=== PATIENT | male | born 1955 | race Caucasian/White ===

== ENCOUNTER 2018-06-06 13:53 | Day surgery (SDC) | payer OTHER, SELFPAY ==
--- NOTE | 2018-06-06 | PATH_ITS ---
[facility] Accession Number: [id number] . 01 Material submitted: . POLYP AT CECUM . 02 Diagnosis: Cecum, Polyp, Biopsy: Colonic mucosa with a small benign lymphoid aggregate and no other diagnostic abnormality. Additional levels were examined. Negative for dysplasia and malignancy. MRV/06/10/2018 . 02 Electronically signed: . Denisse Patterson MD, Pathologist NPI- [id number] . 01 Gross description: . Received one formalin-filled container labeled with the patient's name and designated polyp at cecum. The specimen consists of a 0.4 cm portion of tissue, entirely submitted in one cassette. ([id number]) /FRR . 02 Pathologist provided ICD-10: K63.5 . 02 CPT . 574209 Performed at: 01 [facility] [address] [id number] MD Agusto Delgado MD Phone: [phone] Performed at: 02 [facility] [address] [place] [id number] MD Denisse Patterson MD Phone: [phone]
[2018-06-06 14:18] VITALS: BMI 23.6
[2018-06-06 14:32] VITALS: BP 119/69; PULSE 59; RESP 15; TEMP 36.2; O2SAT 99
[2018-06-06] MEDS: SODIUM CHLORIDE 0.9% 1,000 ML 200 ML IV (14:33)
--- NOTE | 2018-06-06 14:38 | PM.PREOP ---
Pre-operative Note Interval Note History & Physical reviewed/Exam performed by Physician: Yes Changes to H&P: No
[2018-06-06] MEDS: fentaNYL 250 MCG/5 ML INJ IV (15:01)
[2018-06-06] MEDS: MIDAZOLAM 5 MG/5 ML VIAL IV (15:02)
--- NOTE | 2018-06-06 15:08 | PM.OP.1 ---
Operative Date/Time/Diagnoses Date of procedure: 06/06/18 Time of procedure: 15:08 Pre-op diagnosis: Screening Post-op diagnosis: same Procedure & Clinicians Procedure: Colonoscopy to the cecum with 1 biopsy Same procedure as scheduled: Yes Indications: Last colonoscopy more than 10 years ago Surgeon: Deidra Lares Anesthesia Type: Sedation (Versed 8 mg; fentanyl 200 mcg) Operative Notes Findings: 1. Excellent prep 2. Tiny mucosal irregularity at the cecum. Biopsied with cold forceps and retained for pathology 3. No other polyps or mass lesions 4. No AV malformations 5. Very minimal diverticulosis limited to the sigmoid region 6. Grade 1 internal hemorrhoids Closure Type: not applicable Specimen(s): none sent Procedure in detail: After obtaining informed consent, the patient was brought to the GI suite and placed in the left lateral decubitus position on the examination table. After placement of appropriate monitors, the patient was given incremental doses of Versed and Fentanyl until an appropriate level of sedation was achieved. A time out was held per SCOAP protocol. A digital rectal examination was performed and did not reveal any masses or obstructing lesions. The colonoscope was gently passed into the patient's anus and the entire colon navigated to the level of the cecum with minimal difficulty. Once in the cecum, the scope was withdrawn being sure to go before and beyond all mucosal folds and prominences and get an excellent examination. The findings are noted above. At the level of the rectal vault, the scope was retroflexed and the internal anal canal was examined. The scope was straightened and air aspirated from the colon. The instrument was removed from the patient's body and the procedure was concluded. The patient was allowed to awaken from sedation without difficulty and taken to the post-anesthesia care unit in good condition. Total sedation time 26 min Total withdrawal time 20 min Complications: none Condition: stable Disposition: PACU Plan for aftercare: 1. Discharge to home 2. Plan for next colonoscopy in 5-10 years depending on final pathology 3. We will contact you with final pathology results and any additional recommendations
[2018-06-06 15:23] VITALS: BP 85/38; PULSE 64; RESP 18; TEMP 36.4; O2SAT 96
[2018-06-06 15:28] VITALS: BP 90/53; PULSE 88; RESP 12; O2SAT 95
[2018-06-06 15:35] VITALS: BP 93/68; PULSE 69; RESP 15; TEMP 36.1; O2SAT 95
[2018-06-06 15:51] VITALS: BP 97/64; PULSE 58; RESP 16; TEMP 36; O2SAT 94
[2018-06-06 16:05] VITALS: BP 105/67; PULSE 56; RESP 15; TEMP 36.3; O2SAT 96
== END 2018-06-06 16:15 ==
LOC: ENDO 14:01
PROVIDERS: Surgery; Family Provider Family Medicine; PCP Family Medicine; Visit Provider Surgery
PROC: 0DJD8ZZ Inspection of Lower Intestinal Tract, Via Natural or Artificial Opening Endoscopic (ICD-10-PCS; CPT 45378; principal; 2018-06-06 14:45)
DX: Z12.11 Encounter for screening for malignant neoplasm of colon (principal); K57.30 Diverticulosis of large intestine without perforation or abscess without bleeding; K64.0 First degree hemorrhoids; I25.10 Atherosclerotic heart disease of native coronary artery without angina pectoris; E78.5 Hyperlipidemia, unspecified; I25.2 Old myocardial infarction; K63.5 Polyp of colon
CPT/HCPCS: 45380; 99152; 99153; J2250; J3010

== ENCOUNTER → 2020-08-13 08:20 | Outpatient (CLI) | payer OTHER, SELFPAY ==
[2020-08-13 09:49] LABS: Add Manual Diff / Slide Review NO; Basophils Absolute Auto 0 /uL (0-100); Basophils Percent Auto 0.1 % (0-2); Eosinophils Absolute Auto 0 /uL (0-450); Hematocrit 39.1 % (41-53); Hemoglobin 13.2 g/dL (13.5-17.5); Lymphocytes Absolute Auto 1800 /uL (1100-4500); Lymphocytes Percent Auto 21.5 % (25-40); Mean Corpuscular HGB Conc 33.9 % (30-36); Mean Corpuscular Volume 91.6 fL (80-100); Monocytes Absolute Auto 700 /uL (0-900); Monocytes Percent Auto 8.6 % (3-14); Neutrophils Absolute Auto 5700 /uL (1500-7000); Neutrophils Percent Auto 69.8 % (50-75); Platelet Count 308 X10^3/uL (150-400); Red Blood Cell Count 4.27 X10^6/uL (4.5-5.9); Red Cell Distribution Width 13.2 % (11.6-14.8); White Blood Cell Count 8.1 X10^3/uL (4.5-11.0)
[2020-08-13 09:54] LABS: Hemoglobin A1C% w Est Avg Glu 5.6 % (4.0-6.0)
[2020-08-13 10:10] LABS: Alanine Aminotransferase 75 IU/L (<50); Albumin 4.3 g/dL (3.5-5.0); Albumin Globulin Ratio 1.6 (1.0-2.8); Alkaline Phosphatase 41 U/L (38-126); Aspartate Aminotransferase 46 IU/L (17-59); Bilirubin Total 0.7 mg/dL (0.2-1.3); Blood Urea Nitrogen 25 mg/dL (9-20); Calcium 9.7 mg/dL (8.4-10.2); Carbon Dioxide 29 mmol/L (22-32); Chloride 101 mmol/L (98-107); Cholesterol 143 mg/dL (140-199); Estimated Glomerular Filt Rate > 60.0 mL/min (>60); Globulin 2.7 g/dL (1.7-4.1); Glucose 115 mg/dL (80-110); HDL Cholesterol 47 mg/dL (40-60); HEMOLYSIS < 15 (0-50); LDL Cholesterol Calculated 64 mg/dL (<100); Potassium 4.6 mmol/L (3.4-5.1); Sodium 135 mmol/L (137-145); Triglycerides 159 mg/dL (35-150)
[2020-08-13 10:39] LABS: Thyroid Stimulating Hormone 1.57 uIU/mL (0.47-4.68)
== END ==
PROVIDERS: PCP Student in an Organized Health Care Education/Training Program; Referring Provider Student in an Organized Health Care Education/Training Program; Visit Provider Specialist
DX: Z00.00 Encounter for general adult medical examination without abnormal findings (principal); E78.5 Hyperlipidemia, unspecified; Z13.29 Encounter for screening for other suspected endocrine disorder
CPT/HCPCS: 36415; 80053; 80061; 83036; 84443; 85025

== ENCOUNTER → 2020-08-16 14:33 | Outpatient (CLI) | payer OTHER, SELFPAY ==
[2020-08-16 15:40] LABS: Prostate Specific Antigen 1.14 ng/mL (0.10-4.00)
== END ==
PROVIDERS: PCP Student in an Organized Health Care Education/Training Program; Referring Provider Specialist; Visit Provider Specialist
DX: N40.0 Benign prostatic hyperplasia without lower urinary tract symptoms (principal)
CPT/HCPCS: 84153

== ENCOUNTER → 2020-10-06 15:55 | Outpatient (CLI) | payer OTHER, SELFPAY ==
[2020-10-06 17:25] LABS: COVID19 -Nasal RAPID Negative (Negative)
== END ==
PROVIDERS: PCP Student in an Organized Health Care Education/Training Program; Visit Provider Specialist
DX: Z20.822 Contact with and (suspected) exposure to COVID-19 (principal)
CPT/HCPCS: 87635

== ENCOUNTER 2020-10-08 06:45 | Day surgery (SDC) | payer OTHER, SELFPAY ==
[2020-10-05 07:59] VITALS: BMI 23.6
[2020-10-08] VITALS (8 sets, daily range): BP systolic 106–123; BP diastolic 60–70; PULSE 51–58; RESP 12–16; TEMP 36.2–37.1; O2SAT 90–96; BMI 23.9
[2020-10-08] MEDS: LACTATED RINGERS 1,000 ML 42 ML IV (07:13)
--- NOTE | 2020-10-08 07:24 | PM.PREOP ---
Pre-operative Note Interval Note History & Physical reviewed/Exam performed by Physician: Yes Changes to H&P: No
--- NOTE | 2020-10-08 07:27 | PM.HP.1 ---
History of Present Illness History of Present Illness Date Patient Seen: 10/08/20 Time Patient Seen: 07:27 Chief complaint: LEFT HYDROCELECTOMY Narrative: Wesley is a 65-year-old white male presenting today for scheduled left hydrocelectomy for large left hydrocele. He denies interval new complaints. Review and discussion of common side effects, possible complications, perioperative limitations/restrictions, and reasonable expectations of outcomes and recovery were undertaken. He has no further clarifying questions or concerns and wishes to proceed Patient History Medical History Arthritis CHF (congestive heart failure) Coronary artery disease Hypertension Impingement syndrome of left shoulder Ischemic cardiomyopathy Left hydrocele Myocardial infarction (07/13/17) Past heart attack (~2016) Prostate nodule Surgical History History of arthroplasty of right knee History of carpal tunnel release History of cataract removal with insertion of prosthetic lens History of colonoscopy (06/06/18) History of coronary artery stent placement History of inguinal hernia repair, bilateral Family & Social History Family History Father Heart disease Brother Heart disease Social History: household members spouse Tobacco & Substance use: Smoking Status Former smoker alcohol intake current alcohol intake frequency 0-2 drinks per day Substance Use Type marijuana Meds Home Medications and Allergies Home Medications Medication Instructions Recorded Confirmed Type aspirin [Aspir-81] 81 mg PO DAILY 06/06/18 10/08/20 History carvedilol 3.125 mg PO BID 06/06/18 10/08/20 History lisinopril 10 mg PO DAILY 06/06/18 10/08/20 History cholecalciferol (vitamin D3) 50 50 mcg PO DAILY 06/14/20 10/08/20 History mcg (2,000 unit) capsule ezetimibe 10 mg tablet 10 mg PO DAILY 06/14/20 10/08/20 History rosuvastatin 40 mg tablet 40 mg PO DAILY 06/14/20 10/08/20 History valacyclovir 1 gram tablet 1,000 mg PO DAILY PRN 06/14/20 10/08/20 History zinc acetate 25 mg (zinc) capsule 25 mg PO DAILY 06/14/20 10/08/20 History Allergies Allergy/AdvReac Type Severity Reaction Status Date / Time No Known Drug Allergies Allergy Verified 10/08/20 06:58 Review of Systems Review of Systems ROS: Yes All systems reviewed with the patient and are negative except as otherwise documented Exam Vital Signs (past 8 hours): - 10/08/20 07:02 Temperature 97.1 F L Pulse Rate 56 L Respiratory Rate 12 Blood Pressure 123/68 Pulse Oximetry 96 Oxygen Delivery Method Room Air Narrative Exam Narrative: Chest-equal, unlabored, and clear bilaterally. Heart-regular rhythm in regular rate. No abnormal heart tones appreciated. Abdomen-bowel tones are normal without palpable mass, organomegaly, or tenderness. Genitalia-large, space occupying firm left hydrocele. Assessment & Plan Assessment & Plan narrative: Assessment: 1. Symptomatic left hydrocele. Plan: 1. LEFT HYDROCELECTOMY.
[2020-10-08] MEDS: ACETAMINOPHEN 325 MG TABLET 975 MG PO (07:35)
[2020-10-08] MEDS: CEFAZOLIN 1 GM VIAL 2 GM IV (07:48)
--- NOTE | 2020-10-08 08:00 | SUR.OPER ---
Supine on padded OR bed, head on pillow, arms secured on padded arm boards at <90 degrees abduction, legs uncrossed, safety belt at thigh, tape over blanket over lower legs.
[2020-10-08] MEDS: BUPIVACAINE 0.5% W/ EPI (PF) 30 ML VIAL INJ (08:16)
[2020-10-08] MEDS: NEOMYCIN/POLYMYXIN/BACITRA UD OINT 1 EACH TOP (08:17)
[2020-10-08] MEDS: BUPIVACAINE LIPOSOME 266 MG/20 ML VIAL INJ (08:17)
[2020-10-08] MEDS: fentaNYL 100 MCG/2 ML INJ IV ×4 (09:05→09:20)
[2020-10-08] MEDS: OXYCODONE IR 5 MG TABLET PO (09:10)
--- NOTE | 2020-10-08 09:25 | P.OP_ITS ---
Operative Date/Time/Diagnoses Date of procedure: 10/08/20 Time of procedure: 09:25 Pre-op diagnosis: Left hydrocele Post-op diagnosis: other (1. Left hydrocele 2. Left spermatocele ) Procedure & Clinicians Procedure: 1. Left hydrocelectomy 2. Left spermatocelectomy Same procedure as scheduled: No (Incidental left spermatocele x2) Indications: 1. Left hydrocele 2. Left scrotal content pain Surgeon: Cy Louis Click Yes if Unassisted: Yes Anesthesia Type: General and Local (1.33% Exparel) Operative Notes Findings: Large left hydrocele encapsulating 2 additional cystic fluid collections (spermatoceles) measuring up to 6 cm. Closure Type: primary Specimen(s): none sent Applied: drain(s) (Ten [place] fenestrated) Estimated Blood Loss (mL): 2 Blood products transfused: none Procedure in detail: The patient was positioned in supine and was administered general anesthesia. The lower abdomen, genitalia, and groin were then prepped and draped in sterile fashion. A solution of 0.5% Marcaine with epinephrine was then used to infiltrate the midline scrotal raphae skin and subcutaneous tissue. The needlepoint cautery pen was then used to conducted incision the midline scrotal raphae day. The subcutaneous dartos fascia was divided using the same technique. The tunica vaginalis was then encountered. An appropriate plane was then developed and the structure was delivered from the left hemiscrotum intact. The tunica vaginalis was then divided in the midline longitudinally and the fluid contents drained the left testicle and 2 associated spermatoceles, 1 quite large measuring at least 6 cm were then delivered from within the hydrocele sac. Using blunt and cautery technique the spermatoceles were then excised in their entirety and discarded. Excess tunica vaginalis was then excised as well. Hemostasis was then obtained with cautery pen. The testicle and cord were then repositioned in the left hemiscrotum anatomically. The structure was secured to the posterior scrotal wall using interrupted 2-0 Monocryl. Now a solution of on diluted Exparel was used to infiltrate skin and subcutaneous tissue the left inferolateral scrotal wall. A 10 Yakut fenestrated drain was then passed through this location. The drain was trimmed to appropriate length and the distal end positioned in the left hemiscrotal space. The drain was secured at the skin level using 2-0 silk. The midline dartos fascia was then infiltrated with Exparel. It was then reapproximated using a running 2 0 Monocryl. The midline skin was then also infiltrated with Exparel. It was then reapproximated using a running horizontal mattress of 4-0 Monocryl. Skin surface was then cleaned and dried. Antibiotic ointment was then applied to the incision line and the drain exit site. Dry sterile fluffs were then applied to the scrotum and the patient was fitted with an athletic supporter. The patient was then awakened, transferred to a [place], and transported to PACU in stable condition. Complications: none Post-operative Condition: stable Disposition: PACU
== END 2020-10-08 10:17 | disposition home or self-care (01) ==
PROVIDERS: PCP Student in an Organized Health Care Education/Training Program; Referring Provider Specialist; Visit Provider Specialist
PROC: (CPT 55040; principal; 2020-10-08 07:45)
DX: N43.3 Hydrocele, unspecified (principal); N43.41 Spermatocele of epididymis, single; I25.10 Atherosclerotic heart disease of native coronary artery without angina pectoris; I25.2 Old myocardial infarction; I11.0 Hypertensive heart disease with heart failure; I50.9 Heart failure, unspecified
CPT/HCPCS: 55040; C9290; J0690; J1100; J2405; J2704; J3010

== ENCOUNTER → 2022-07-29 08:08 | Outpatient (CLI) | payer OTHER, SELFPAY | PROVIDERS: PCP Student in an Organized Health Care Education/Training Program; Visit Provider Nurse Practitioner Family | DX: J02.9 Acute pharyngitis, unspecified (principal) | CPT/HCPCS: 87070 ==

== ENCOUNTER → 2023-09-21 10:19 | Outpatient (CLI) | payer OTHER, SELFPAY ==
--- NOTE | 2023-09-21 10:20 | DI.ECHO.S_ITS ---
[facility]+ [facility] : : [address] : : [place] : : [id number] : : Phone: [phone] Echocardiogram Report + + :Name: SLOAN VILLALTA Study Date: 09/21/2023 Height: 68 in : :Hospital ReadingLocation: Weight: 159 lb : : Gender: Male BSA: 1.9 m2 : :: 1955 Age: 68 yrs BP: 156/86 mmHg: :Reason For Study: OLD MYOCARDIAL INFARCTION : :Ordering Physician: DI, : :PALOMO Valdivia Performed By: Peyton Clark : :Referring: PALOMO SEVILLA : + + Interpretation Summary 1. The left ventricular contractility is severely compromised. Estimated ejection fraction is approximately 15 to 20%. There is akinesis with associated thinning of the anterior apical segment. There is severe hypokinesis in the remaining segments. Grade 1 diastolic dysfunction noted. 2. The right ventricular contractility is normal. 3. There is left atrium and left ventricular enlargement. The right ventricle and right atrium are of normal size. 4. No significant valvular abnormalities are appreciated. 5. No obvious intracardiac shunts noted. 6. No obvious intracardiac masses nor thrombi noted. 7. No hemodynamically significant pericardial effusion identified. Conclusion: Severely compromised left ventricular systolic function with no significant valvular abnormalities. When compared with the last echocardiogram, there is worsening decline in systolic function. Procedure: A two-dimensional transthoracic echocardiogram with color flow and Doppler was performed. The study quality was technically adequate. Comparison is made with the echocardiogram of 10/23/2016. The patient was in sinus bradycardia with heart rates between 49-66 bpm during the exam. Left Ventricle: The left ventricle is mildly dilated. The estimated left ventricular end diastolic volume is 163 ml. There is normal left ventricular wall thickness. The ejection fraction is estimated to be 15-20%. Right Ventricle: The right ventricle is mildly dilated. The right ventricular systolic function is normal. Atria: The left atrium is mildly dilated. Right atrial size is normal. There is no Doppler evidence for an interatrial shunt. Mitral Valve: The mitral valve is normal in structure and function. There is mild mitral regurgitation. Aortic Valve: The aortic valve is trileaflet. The aortic valve opens well. There is no aortic valve stenosis. There is trace aortic regurgitation. Tricuspid Valve: The tricuspid valve is normal in structure and function. There is trace tricuspid regurgitation. The right ventricular systolic pressure is estimated to be at least 28 mmHg based on an estimated right atrial pressure of 3 mm Hg. Pulmonic Valve: The pulmonic valve leaflets are thin and pliable; valve motion is normal. There is no pulmonic valvular regurgitation. Great Vessels: The aortic root is normal size. The dimensions of the ascending aorta are normal. The IVC is of normal diameter and collapses greater than 50% with a sniff. This suggests a low right atrial pressure of 3 mm Hg. Pericardium/ Pleura There is no pericardial effusion. There is no pleural effusion. MMode/2D Measurements & Calculations LVIDd: 5.8 cm LVOT diam: 2.1 cm LVIDs: 5.0 cm Ao root diam: 3.3 cm FS: 13.9 % asc Aorta Diam: 3.3 cm IVSd: 0.72 cm Ao Arch Diam (Prox Trans): 3.1 cm LVPWd: 0.86 cm LV nick. diameter/BSA (cm/m^2): 3.1 LV sys. diameter/BSA (cm/m^2): 2.7 LA A2 area: 24.6 cm2 RA long axis: 4.9 cm LA A4 area: 19.6 cm2 RA area: 18.5 cm2 LA length (vol): 5.1 cm RA vol: 60.1 ml LA vol: 79.8 ml RA : 32.4 ml/m2 LA vol index: 43.0 ml/m2 IVC diam: 1.7 cm RVD1 (basal): 4.4 cm TAPSE: 1.8 cm Doppler Measurements & Calculations Ao V2 max: 114.9 cm/sec LVOT Max Michael: 100.3 cm/sec Ao V2 mean: 77.9 cm/sec LV V1 max P.0 mmHg Ao max P.3 mmHg LV V1 VTI: 22.1 cm Ao mean P.7 mmHg FRANCISCO(I,D): 2.9 cm2 Ao V2 VTI: 27.0 cm FRANCISCO(V,D): 3.1 cm2 sev ratio: 0.82 FRANCISCO indexed to BSA (cm^2/m^2): 1.6 MV E max michael: 40.2 cm/sec TR max michael: 252.0 cm/sec MV A max michael: 52.1 cm/sec TR max P.4 mmHg MV E/A: 0.77 PA V2 max: 75.2 cm/sec Med Peak E' Michael: 5.8 cm/sec PA V2 mean: 53.7 cm/sec E/E' med: 6.9 PA mean P.3 mmHg Lat Peak E' Michael: 6.8 cm/sec PA pr(Accel): 8.8 mmHg E/E' lat: 5.9 E/e' average: 6.4 MV dec time: 0.36 sec SV(LVOT): 77.6 ml Reading Physician:
== END ==
PROVIDERS: PCP Family Medicine; Referring Provider Family Medicine; Visit Provider Family Medicine
DX: I34.0 Nonrheumatic mitral (valve) insufficiency (principal); I50.22 Chronic systolic (congestive) heart failure; I25.2 Old myocardial infarction
CPT/HCPCS: 93306

== ENCOUNTER → 2023-11-26 07:24 | Outpatient (CLI) | payer OTHER, SELFPAY ==
[2023-11-26 09:31] LABS: BUN Creatinine Ratio 22.3 (6-22); Blood Urea Nitrogen 23 mg/dL (9-20); Calcium 9.2 mg/dL (8.4-10.2); Carbon Dioxide 26 mmol/L (22-32); Chloride 104 mmol/L (98-107); Estimated Glomerular Filt Rate > 60 mL/min (>60); Glucose 92 mg/dL (80-110); HEMOLYSIS < 15 (0-50); Potassium 4.9 mmol/L (3.4-5.1); Sodium 137 mmol/L (137-145)
== END ==
LOC: LAB 07:26
PROVIDERS: PCP Family Medicine; Referring Provider Family Medicine; Visit Provider Family Medicine
DX: I25.5 Ischemic cardiomyopathy (principal); I10 Essential (primary) hypertension
CPT/HCPCS: 36415; 80048

== ENCOUNTER → 2023-12-11 09:00 | Outpatient (CLI) | payer OTHER, SELFPAY ==
[2023-12-11 10:10] LABS: BUN Creatinine Ratio 15.8 (6-22); Blood Urea Nitrogen 19 mg/dL (9-20); Calcium 9.4 mg/dL (8.4-10.2); Carbon Dioxide 30 mmol/L (22-32); Chloride 104 mmol/L (98-107); Estimated Glomerular Filt Rate > 60 mL/min (>60); Glucose 104 mg/dL (80-110); HEMOLYSIS < 15 (0-50); Sodium 136 mmol/L (137-145)
[2023-12-11 10:11] LABS: Potassium 5.7 mmol/L (3.4-5.1)
== END ==
PROVIDERS: PCP Family Medicine
DX: I25.5 Ischemic cardiomyopathy (principal); I10 Essential (primary) hypertension
CPT/HCPCS: 36415; 80048

== ENCOUNTER → 2023-12-26 07:34 | Outpatient (CLI) | payer OTHER, SELFPAY ==
[2023-12-26 09:18] LABS: BUN Creatinine Ratio 17.4 (6-22); Blood Urea Nitrogen 25 mg/dL (9-20); Calcium 9.1 mg/dL (8.4-10.2); Carbon Dioxide 27 mmol/L (22-32); Chloride 100 mmol/L (98-107); Estimated Glomerular Filt Rate 53 mL/min (>60); Glucose 94 mg/dL (80-110); HEMOLYSIS < 15 (0-50); Potassium 4.8 mmol/L (3.4-5.1); Sodium 133 mmol/L (137-145)
== END ==
PROVIDERS: PCP Family Medicine; Referring Provider Pharmacist; Visit Provider Pharmacist
DX: I25.5 Ischemic cardiomyopathy (principal); I10 Essential (primary) hypertension
CPT/HCPCS: 36415; 80048

== ENCOUNTER → 2024-01-15 10:02 | Outpatient (CLI) | payer OTHER, SELFPAY ==
[2024-01-15 11:18] LABS: BUN Creatinine Ratio 20.3 (6-22); Blood Urea Nitrogen 25 mg/dL (9-20); Calcium 9.5 mg/dL (8.4-10.2); Carbon Dioxide 27 mmol/L (22-32); Chloride 105 mmol/L (98-107); Estimated Glomerular Filt Rate > 60 mL/min (>60); Glucose 96 mg/dL (80-110); HEMOLYSIS < 15 (0-50); Potassium 5.1 mmol/L (3.4-5.1); Sodium 137 mmol/L (137-145)
== END ==
PROVIDERS: PCP Family Medicine; Referring Provider Pharmacist; Visit Provider Pharmacist
DX: I25.5 Ischemic cardiomyopathy (principal); I10 Essential (primary) hypertension
CPT/HCPCS: 36415; 80048

== ENCOUNTER → 2024-02-01 09:18 | Outpatient (CLI) | payer OTHER, SELFPAY ==
[2024-02-01 10:10] LABS: BUN Creatinine Ratio 23.3 (6-22); Blood Urea Nitrogen 34 mg/dL (9-20); Calcium 9.4 mg/dL (8.4-10.2); Carbon Dioxide 28 mmol/L (22-32); Chloride 108 mmol/L (98-107); Estimated Glomerular Filt Rate 52 mL/min (>60); Glucose 100 mg/dL (80-110); HEMOLYSIS < 15 (0-50); Potassium 5.1 mmol/L (3.4-5.1); Sodium 140 mmol/L (137-145)
== END ==
PROVIDERS: PCP Family Medicine; Referring Provider Pharmacist; Visit Provider Pharmacist
DX: I25.5 Ischemic cardiomyopathy (principal); I10 Essential (primary) hypertension
CPT/HCPCS: 36415; 80048

== ENCOUNTER → 2024-03-18 09:31 | Outpatient (CLI) | payer OTHER, SELFPAY ==
[2024-03-18 10:41] LABS: BUN Creatinine Ratio 22.4 (6-22); Blood Urea Nitrogen 26 mg/dL (9-20); Carbon Dioxide 29 mmol/L (22-32); Chloride 104 mmol/L (98-107); Estimated Glomerular Filt Rate > 60 mL/min (>60); Glucose 96 mg/dL (80-110); HEMOLYSIS < 15 (0-50); Potassium 4.6 mmol/L (3.4-5.1); Sodium 138 mmol/L (137-145)
== END ==
LOC: LAB 09:33
PROVIDERS: PCP Family Medicine; Referring Provider Pharmacist; Visit Provider Pharmacist
DX: I25.5 Ischemic cardiomyopathy (principal); I10 Essential (primary) hypertension
CPT/HCPCS: 36415; 80048

== ENCOUNTER → 2024-04-01 08:26 | Outpatient (CLI) | payer OTHER, SELFPAY ==
[2024-04-01 10:57] LABS: BUN Creatinine Ratio 20.9 (6-22); Blood Urea Nitrogen 23 mg/dL (9-20); Calcium 9.3 mg/dL (8.4-10.2); Carbon Dioxide 28 mmol/L (22-32); Chloride 104 mmol/L (98-107); Estimated Glomerular Filt Rate > 60 mL/min (>60); Glucose 100 mg/dL (80-110); HEMOLYSIS < 15 (0-50); Potassium 4.7 mmol/L (3.4-5.1); Sodium 137 mmol/L (137-145)
== END ==
PROVIDERS: PCP Family Medicine; Referring Provider Pharmacist; Visit Provider Pharmacist
DX: I25.5 Ischemic cardiomyopathy (principal); I10 Essential (primary) hypertension
CPT/HCPCS: 36415; 80048

== ENCOUNTER → 2024-04-21 08:18 | Outpatient (CLI) | payer OTHER, SELFPAY ==
[2024-04-21 09:41] LABS: Blood Urea Nitrogen 26 mg/dL (9-20); Carbon Dioxide 28 mmol/L (22-32); Chloride 106 mmol/L (98-107); Estimated Glomerular Filt Rate > 60 mL/min (>60); HEMOLYSIS < 15 (0-50); Sodium 140 mmol/L (137-145)
[2024-04-21 09:48] LABS: Calcium 9.7 mg/dL (8.4-10.2); Glucose 97 mg/dL (80-110); Potassium 5.5 mmol/L (3.4-5.1)
== END ==
PROVIDERS: PCP Family Medicine; Referring Provider Pharmacist; Visit Provider Pharmacist
DX: I25.5 Ischemic cardiomyopathy (principal); I10 Essential (primary) hypertension
CPT/HCPCS: 36415; 80048

== ENCOUNTER → 2024-05-05 09:03 | Outpatient (CLI) | payer OTHER, SELFPAY ==
[2024-05-05 10:19] LABS: BUN Creatinine Ratio 13.2 (6-22); Blood Urea Nitrogen 15 mg/dL (9-20); Calcium 9.8 mg/dL (8.4-10.2); Carbon Dioxide 30 mmol/L (22-32); Chloride 102 mmol/L (98-107); Estimated Glomerular Filt Rate > 60 mL/min (>60); Glucose 96 mg/dL (80-110); HEMOLYSIS < 15 (0-50); Potassium 4.9 mmol/L (3.4-5.1); Sodium 136 mmol/L (137-145)
== END ==
PROVIDERS: PCP Family Medicine; Referring Provider Pharmacist; Visit Provider Pharmacist
DX: I25.5 Ischemic cardiomyopathy (principal); I10 Essential (primary) hypertension
CPT/HCPCS: 36415; 80048